=== PATIENT | male | born 1945 | race Caucasian/White ===

== ENCOUNTER → 2019-12-02 | Outpatient (CLI) | payer MEDICARE ==
[~2019-12-02] MED LIST: BACTRIM DS TAB1 EACH PO; BENTYL 20 MG TA20 M1 PO; CRESTOR20 MG PO; EPIPEN0.3 MG/0.1 IM; FLOMAX0.4 MG PO; HYDROXYZINE HCL25 M1 PO; LISINOPRIL-HCT1 EAC1 PO; LOPRESSOR50 PO; MEDROLDOSEPACK PO; METFORMIN HCL500 MG PO; NITROGLYCERIN0.4 MG SUBLING; NIZORAL120 ML INTRADERM; PEPCID20 MG PO; PROAIR HFA8.5 GM PO
== END ==
LOC: M.RAD 13:56
PROVIDERS: ATTEND Internal Medicine
DX: M19.031 Primary osteoarthritis, right wrist (principal); M19.041 Primary osteoarthritis, right hand

== ENCOUNTER 2020-07-15 13:44 | Emergency (ER) | payer MEDICARE ==
[~2020-07-15] VITALS: Ht 182.9 cm; Wt 117.9 kg
[2020-07-15 15:02] VITALS: BP 158/68
== END 2020-07-15 15:02 | disposition home or self-care (01) ==
LOC: M.ERS 13:44
DX: T16.2XXA Foreign body in left ear, initial encounter (principal); I10 Essential (primary) hypertension; K21.9 Gastro-esophageal reflux disease without esophagitis; X58.XXXA Exposure to other specified factors, initial encounter; Y93.89 Activity, other specified; Y92.89 Other specified places as the place of occurrence of the external cause; Y99.8 Other external cause status